=== PATIENT | male | born 1980 | race Caucasian/White ===

== ENCOUNTER 2016-11-05 18:03 | Emergency (ER) | payer OTHER ==
[2016-11-05 18:12] VITALS: BP 119/72
[2016-11-05] MEDS ORDERED: Sulfamethox/Trimethoprim DS 800/160* TAB PO ONE (18:41)
--- NOTE | 2016-11-05 18:54 | UC ---
Skin Complaint HPI - HPI Summary HPI Summary: LEFT CHEEK ABSCESS THREE DAYS OF SWELLING AND DRAINAGE. LOW GRADE FEVER. HAS HAD ABSCESSES BEFORE ON DIFFERENT AREA OF BODY. HAS BEEN USING 'DRAWING SALVE'. - History of Current Complaint Chief Complaint: [employer] Time Seen by Provider: 11/05/16 18:08 Stated Complaint: BOIL ON FACE,PAIN,FEVER,SWELLING Hx Obtained From: Patient Onset/Duration: Gradual Onset, Lasting Days, Still Present Skin Exposure Onset/Duration: Days Ago Onset Severity: Mild Current Severity: Moderate Location: Discrete - LEFT CHEEK Character: Swelling, Raised, Painful Aggravating: Touch Alleviating: Nothing Associated Signs & Symptoms: Positive: Fever, Drainage, Tenderness, Red Streaks. Negative: Vomiting, Numbness, Chills, Cough, Wheezing, Chest Pain, Hoarseness, Throat Tightening Related History: Possible Reaction to: Environmental Exposure - Allergy/Home Medications Allergies/Adverse Reactions: Allergies Allergy/AdvReac Type Severity Reaction Status Date / Time No Known Allergies Allergy Verified 05/03/14 11:02 Home Medications: Home Medications Ibuprofen [Advil] 200 mg PO 11/05/16 [History] Review of Systems Constitutional: Negative Skin: Other - ABSCESS LEFT CHEEK Eyes: Negative ENT: Negative Respiratory: Negative Cardiovascular: Negative Gastrointestinal: Negative Genitourinary: Negative Motor: Negative Neurovascular: Negative Musculoskeletal: Negative Neurological: Negative Psychological: Negative All Other Systems Reviewed And Are Negative: Yes PMH/Surg Hx/FS Hx/Imm Hx Previously Healthy: Yes - Surgical History Surgical History: None - Family History Known Family History: Negative: Other - NO MRSA HISTORY - Social History Occupation: Employed Full-time, Student Lives: With Family Alcohol Use: None Substance Use Type: None Smoking Status (MU): Never Smoked Tobacco Physical Exam Triage Information Reviewed: Yes Appearance: Well-Appearing, No Pain Distress, Well-Nourished Vital Signs: Initial Vital Signs Temp 99.0 F 11/05/16 18:07 Pulse 88 11/05/16 18:07 Resp 18 11/05/16 18:07 BP 119/72 11/05/16 18:07 Pulse Ox 100 11/05/16 18:07 Vital Signs Reviewed: Yes Eye Exam: Normal ENT Exam: Normal ENT: Positive: Normal ENT inspection, TMs normal Dental Exam: Normal Neck exam: Normal Neck: Positive: Supple, Nontender, No Lymphadenopathy Respiratory Exam: Normal Respiratory: Positive: Chest non-tender, Lungs clear, Normal breath sounds, No respiratory distress, No accessory muscle use Cardiovascular Exam: Normal Cardiovascular: Positive: RRR, No Murmur, Pulses Normal Abdominal Exam: Normal Abdomen Description: Positive: Nontender, No Organomegaly Musculoskeletal Exam: Normal Musculoskeletal: Positive: Strength Intact, ROM Intact Neurological Exam: Normal Psychological Exam: Normal Skin: Positive: Other - ABSCESS LEFT CHEEK Course/Dx - Differential Diagnoses - Skin Complaint Differential Diagnoses: Abscess, Cellulitis - Diagnoses Provider Diagnoses: ABSCESS LEFT CHEEK Discharge - Discharge Plan Condition: Stable Disposition: HOME Prescriptions: Sulfamethox/Trimethoprim DS* [Bactrim DS 800/160 TAB*] 1 tab PO BID #20 tab Patient Education Materials: Abscess (ED) Referrals: [facility] [Outside] No Primary Care Phys,NOPCP [Primary Care Provider] - Images Head: 1 - 1CM X 1CM ABSCESS LEFT CHEEK
== END 2016-11-05 18:50 | disposition home or self-care (01) ==
LOC: UCEAST 18:03
DX: L02.01 Cutaneous abscess of face (principal); A49.01 Methicillin susceptible Staphylococcus aureus infection, unspecified site
CPT/HCPCS: 87070; 87077; 87186; 87205; 87640; 87641; 99212; A9270-GY; G0463